=== PATIENT | female | born 1990 | race Caucasian/White ===

== ENCOUNTER → 2016-03-13 | Day surgery (SDC) | payer BC ==
[~2016-03-13] VITALS: Ht 170.2 cm; Wt 63.5 kg
[~2016-03-13] MED LIST: ACETAMINOPHEN 1000 MG/100 ML VIAL IV ONE; AUGM875T PO; BACITRACIN OINT 0.9 GM PKT TOP ONE; BUPIVACAINE HCL PF 0.5% 30 ML VIAL ONE; DEXT 5%-NACL 0.45% 1000 ML INJ 1,000 ML IV SCH; IBUP800T23 PO; IBUPROFEN 800 MG TAB ONE; LACTATED RINGER'S 1000 ML INJ 1,000 ML ONE; LIDOCAINE HCL 1% 20 ML VIAL ONE; MIDAZOLAM HCL 2 MG/2 ML VIAL ONE; ONDA1TAB17 PO; ONDANSETRON HCL 4 MG/2 ML VIAL IV PUSH ONE; OXYC1TAB63 PO; PERC5TAB12 PO; PROMETHAZINE INJ 25 MG/ML VIAL ONE; PROPOFOL 200 MG/20 ML AMP IV ONE; SODIUM CHLORIDE 0.9% FLUSH 5 ML FLUSH IVF PRN; SODIUM CHLORIDE 0.9% FLUSH 5 ML FLUSH IVF SCH; ceFAZolin 2 GM PREMIX 50 ML ONE; ePHEDrine/NS 50 MG/5 ML SYR IV ONE; fentaNYL CITRATE 250 MCG/5 ML AMP IV ONE; fentaNYL CITRATE 250 MCG/5 ML AMP ONE
[2016-03-13 08:25] LABS: HEMATOCRIT 39.2 % (35.0-46.0); MEAN CELL VOLUME 88.7 FL (80.0-100.0); MEAN CORPUSCULAR HEMOGLOBIN 30.4 PG (27.0-34.0); MEAN CORPUSCULAR HGB CONC 34.2 % (32.0-36.0); PLATELET COUNT 204 TH/MM3 (150-450); RED BLOOD COUNT 4.42 MIL/MM3 (4.00-5.30); RED CELL DISTRIBUTION WIDTH 12.2 % (11.6-17.2); REVIEW FLAG FINAL; WHITE BLOOD COUNT 5.8 TH/MM3 (4.0-11.0)
[2016-03-13 08:48] VITALS: BP 110/82; PULSE 80; RESP 16; TEMP 98.4; O2SAT 100
--- NOTE | 2016-03-13 10:04 | HP.UPD ---
H&P Update Date: Mar 13, 2016 Note The Pre-Admit History and Physical Examination regarding the above named patient was reviewed (including, but not limited to, vital signs, medications, allergies, co-morbid conditions), and upon re-examination it is noted that: Indicated with "X" x - the patient's condition has not significantly changed since the last examination. [] - the patient's condition has changed since the last examination. Changes: Flora Atwood MD Mar 13, 2016 10:04
[2016-03-13 10:26] LABS: BETA HCG QUANT LESS THAN 1 MIU/ML (0-5)
--- NOTE | 2016-03-13 14:10 | HHI.PR ---
Immediate Post Op Note Procedure Date: Mar 13, 2016 Pre Op Diagnosis: (1) Injury of digital nerve of right little finger (2) Open wound of finger with tendon involvement Post Op Diagnosis: (1) Open wound of finger with tendon involvement (2) Injury of digital nerve of right little finger Surgeon: Flora Atwood Glycerin Operator(s): None Procedure: Repair of flexor tendons of the right fourth and fifth fingers. Repair of the ulnar digital nerve of the right fifth finger with allograft tube. Anesthesia: General Drains: None Tourniquet time (min at mmHg) 127 minutes at 220 mm Hg. Patient to: PACU Patient Condition: Good Date/Time of Procedure: SEE SURGICAL CARE RECORD Flora Atwood MD Mar 13, 2016 14:10
[2016-03-13 15:00] VITALS: TEMP 98.1
[2016-03-13 17:00] VITALS: BP 95/63; PULSE 98; RESP 16; O2SAT 100
--- NOTE | 2016-03-16 06:06 | MP ---
cc: CYN STYLES M.D. DATE OF SURGERY 03/13/2016 PREOPERATIVE DIAGNOSES 1. Lacerated flexor tendons of the right fourth and fifth fingers. 2. Laceration of the ulnar digital nerve of the right fifth finger. POSTOPERATIVE DIAGNOSES 1. Lacerated flexor tendons of the right fourth and fifth fingers. 2. Laceration of the ulnar digital nerve of the right fifth finger. PROCEDURES 1. Repair of the flexor digitorum profundus to the right ring finger, Zone II. 2. Repair of the flexor digitorum superficialis of the right ring finger, Zone II 3. Repair of the flexor digitorum profundus of the right fifth finger, Zone II. 4. Repair of the ulnar digital nerve of the right fifth finger using an allograft tube. ANESTHESIA General. SURGEON Cyn Styles MD INDICATIONS A 25-year-old female with injury to her right hand with the injuries as noted above. FINDINGS The digital nerve was completely lacerated. The flexor digitorum superficialis was partially lacerated to the fifth finger. The one tendon which was cut was debrided. The other one was completely intact and left so. In addition, it was noted that the lacerations were in Zone II but the injury was quite distal. At the completion of the procedure the tendons were repaired as noted above and the nerve was repaired within the tube. TOURNIQUET TIME 127 minutes. PROCEDURE The patient was seen preoperatively where the sites and side were identified and marked. The patient was then taken to the operating room, placed in a supine position. Her identity was checked against the arm band and the consent form, site and side confirmed, time-out called prior to beginning the procedure. The right upper extremity was prepped with Hibiclens and draped in the usual sterile fashion. The areas to be incised were outlined with a marking pen and zigzag incisions based on the original injury. The arm was then exsanguinated and the tourniquet inflated to 220 mmHg. Bupivacaine 0.5% plain was used to make metacarpal head blocks both dorsally on the palmar side to the fourth and fifth fingers. The stitches which had been placed previously were removed and a 15 blade was used to excise both sides of the lacerations. A new 15 blade was then used to make zigzag incisions proximally on the fifth finger exposing the tendon sheath and the underlying tendons. The flexor digitorum profundus of the fifth finger was able to be retrieved and a stitch was placed using a modified El stitch plus an additional strand to make it a four-strand repair. We used grasping stitches with 3-0 Ethibond suture material. The same was then done distally. The tendon distally was brought out of Zone II in order to facilitate the repair and place in the stitches. The nerve was found proximally and distally. Attention was then turned to the ring finger where the incisions were made. Flaps were elevated to expose the tendons proximally and distally. The proximal and distal tendons were identified. The flexor digitorum superficialis was cut just prior to its insertion in the middle phalanx. Both tendons were able to be brought down. They were aligned properly and able to glide normally. Sutures were placed in the proximal stump of the deep flexor as well as the distal stump of the deep flexor. The sublimis was then repaired using the 3-0 Ethibond suture material in a horizontal mattress suture to the radial side and then to the ulnar side. The proximal end of the profundus was then brought beneath the A4 yoli and pulled distally, held in place with a 25-gauge needle and the two ends were tied and the repaired site was now allowed to retract back into Zone II. The attention was then turned to the fifth finger where the profundus was brought distally, again distal to the A4 yoli were was repaired to the distal stump, then allowed to retract back after tying the two ends into Zone II where the injury took place. Both wounds were then copiously irrigated with saline. Attention was then turned to the nerve which was repaired using microsurgical technique by placing a horizontal mattress suture. First a stitch was placed into the Integra nerve guide tube, 1.5 mm in diameter, and then placed horizontal mattress through the proximal nerve and then into the tube itself. The tube was then measured and cut and the remaining distal end was then also placed into it using a horizontal mattress suture to have a gap of approximately 1-2 mm. The tube was then filled with saline getting rid of all the bubbles. The wounds were then closed with interrupted running 5-0 nylon suture. The tourniquet was released after 127 minutes of tourniquet time. Of note is the fact that the tourniquet was released after the nerve was repaired and before the wounds were closed. Pressure was applied. After approximately 7 minutes there was no significant oozing and the wounds were then closed with interrupted running 5-0 nylon suture. Once the wounds were closed, the hand was cleansed of blood and Hibiclens and povidone-iodine ointment was placed onto the sutures along with Telfa, Adaptic, fluffy gauze, hand wrap and a dorsal splint to keep the wrist and fingers flexed. The patient was then taken from the operating room to the recovery room in satisfactory condition having tolerated the procedure well. Postoperative instructions include keeping the arm elevated, keeping it clean and dry and returning later in the week for followup. The patient was given a prescription for ibuprofen and Percocet. MD RANDALL Xie/MICKEY /2:13 PM /5:50 AM LIT
== END | disposition home or self-care (01) ==
LOC: CSDC 08:11
PROVIDERS: ATTEND Specialist
DX: S64.496A Injury of digital nerve of right little finger, initial encounter (principal); S66.124A Laceration of flexor muscle, fascia and tendon of right ring finger at wrist and hand level, initial encounter; S66.126A Laceration of flexor muscle, fascia and tendon of right little finger at wrist and hand level, initial encounter; W26.0XXA Contact with knife, initial encounter; Y93.89 Activity, other specified; Y92.838 Other recreation area as the place of occurrence of the external cause
CPT/HCPCS: 01810; 26356; 26370; 36415; 64910; 84702; 85027; C9352; J0131; J0690; J2250; J2405; J2550; J3010; J7120